=== PATIENT | female | born 2000 | race American Indian/Alaskan Native ===

== ENCOUNTER 2020-03-22 23:51 | Emergency (ER) | payer SELFPAY ==
[2020-03-22 23:58] VITALS: BP 116/90
== END 2020-03-23 01:00 | disposition left against medical advice (07) ==
LOC: ED 23:51
DX: Z00.8 Encounter for other general examination (principal); Z53.21 Procedure and treatment not carried out due to patient leaving prior to being seen by health care provider

== ENCOUNTER 2020-09-29 16:38 | Outpatient (CLI) | payer MEDICAID ==
[2020-09-29 19:24] VITALS: BP 110/78
[2020-09-29 19:36] LABS: Bacteria,Urine 1+ /HPF (Negative); Bilirubin,Urine NEG (Negative); Blood,Urine LG (Negative); Color,Urine Yellow (Yellow); Mucus,Urine FEW /HPF; Urobilinogen,Urine < 2.0 mg/dL (<2.0)
[2020-09-29] MEDS ORDERED: LACTATED RINGERS 1,000 ML IV ONE (19:51)
--- NOTE | 2020-09-30 18:00 | Electrocardiograph Report ---
[facility] Test Date: 2020-09-29 Test Time: 17:41:01 Pat Name: AMNA BIANCHI Department: Room: Gender: F Director Business Development: : 2000 Requested By: KANWAL NEWTON Order Number: [id number] Reading MD: Alva Ramirez Measurements Intervals [place] Rate: 115 P: 63 [place]: 136 QRS: 63 QRSD: 78 T: 26 QT: 316 QTc: 438 Interpretive Statements Sinus tachycardia Probable left atrial enlargement No previous ECG available for comparison Electronically Signed On 09-30-2020 18:00:42 EDT by Alva Ramirez
== END 2020-09-29 19:58 | disposition home or self-care (01) ==
LOC: EDSTATUS 17:55 → TRG 17:59 → APU 18:04 → TRG 19:58
PROVIDERS: ATTEND Obstetrics & Gynecology
DX: R00.0 Tachycardia, unspecified (principal); R55 Syncope and collapse
CPT/HCPCS: 81001; 87086; 93005

== ENCOUNTER 2020-11-07 19:56 | Outpatient (CLI) | payer MEDICAID ==
[2020-11-07 20:47] VITALS: BP 212/71
[2020-11-07 21:05] LABS: Bilirubin,Urine NEG (Negative); Blood,Urine LG (Negative); Calcium Oxalate Crystals,Urine 1+; Color,Urine Amber (Yellow); Mucus,Urine 3+ /HPF
[2020-11-07] MEDS ORDERED: LACTATED RINGERS 1,000 ML IV ONE (21:09)
[2020-11-07 21:12] LABS: Amphetamine Screen,Urine Negative; Benzodiazepines Screen,Urine Negative; Cannabinoid Screen,Urine Negative; Cocaine Screen,Urine Negative; Methadone Screen,Urine Negative; Opiate Screen,Urine Negative
--- NOTE | 2020-11-07 23:25 | Ultrasound Report ---
ULTRASOUND OBSTETRIC LIMITED ULTRASOUND BIOPHYSICAL PROFILE INDICATION / CLINICAL INFORMATION: ROBIN, PRESENTATION, PLACENTA. COMPARISON: None available. FINDINGS: BREATHING MOVEMENT = 2 GROSS BODY MOVEMENT = 2 TONE = 2 QUALITATIVE AMNIOTIC FLUID VOLUME = 2 TOTAL BIOPHYSICAL SCORE = 8/8 AMNIOTIC FLUID INDEX (cm) = 12.2 PRESENTATION: Cephalic. HEART RATE (beats per minute): 148 ADDITIONAL FINDINGS: Placenta anterior grade 2 without previa IMPRESSION: 1. Biophysical Score = 8/8 Signer Name: Mario Kennedy MD Signed: 11/07/2020 11:20 PM Workstation Name: [id number]
== END 2020-11-07 23:16 | disposition home or self-care (01) ==
LOC: TRG 19:56 → APU 20:08 → TRG 23:16
PROVIDERS: ATTEND Obstetrics & Gynecology
DX: O36.8130 Decreased fetal movements, third trimester, not applicable or unspecified (principal); O26.893 Other specified pregnancy related conditions, third trimester; R10.9 Unspecified abdominal pain; O99.513 Diseases of the respiratory system complicating pregnancy, third trimester; J45.909 Unspecified asthma, uncomplicated; O99.343 Other mental disorders complicating pregnancy, third trimester; F41.9 Anxiety disorder, unspecified; Z87.891 Personal history of nicotine dependence; Z3A.37 37 weeks gestation of pregnancy
CPT/HCPCS: 59025; 76815; 76819; 80307; 81001; 87086; 96361; 96365; J0690; J7120; 96360

== ENCOUNTER 2020-11-12 09:04 | Inpatient (IN) | payer MEDICAID ==
[2020-11-12] MEDS ORDERED: LOPERAMIDE 2 MG CAP PO PRN (10:23)
[2020-11-12] MEDS ORDERED: miSOPROStol 200 MCG TAB PR PRN (10:23)
[2020-11-12] MEDS ORDERED: LIDOCAINE (2%) 20 MG/1 ML VIAL 20 ML MDV INFILTRATI NR (10:23)
[2020-11-12] MEDS ORDERED: TERBUTALINE 1 MG/1 ML INJ SUB-Q PRN (10:23)
[2020-11-12] MEDS ORDERED: OXYTOCIN 10 UNIT/1 ML INJ IM PRN (10:23)
[2020-11-12] MEDS ORDERED: CARBOPROST TROMETHAMINE 250 MCG/1 ML INJ IM PRN (10:23)
[2020-11-12] MEDS ORDERED: OXYTOCIN DRIP 30 UNITS/500 ML BAG IV SCH (11:00)
[2020-11-12] MEDS ORDERED: BUTORPHANOL 2 MG/1 ML INJ IV PRN ×4 (11:05→11:30)
[2020-11-12] MEDS ORDERED: fentaNYL 100 MCG/2 ML INJ IV PRN ×2 (11:05→11:30)
[2020-11-12 11:16] LABS: Hemoglobin 12.2 gm/dl (10.1-14.3); Mean Corpuscular HGB Conc 35 % (30-34); Mean Corpuscular Volume 84 fl (79-97); Platelet Count 227 K/mm3 (140-440); Red Blood Count 4.15 M/mm3 (3.65-5.03); Red Cell Distribution Width 14.4 % (13.2-15.2)
--- NOTE | 2020-11-12 11:22 | History and Physical Report ---
History of Present Illness Date of examination: 11/12/20 Date of admission: 11/12/20 Chief complaint: c/o uc since last night History of present illness: 19 y/o presents @ 38.2 wks with c/o uc since last night. She denies VB or LOF and admits to active FM. Pt admits to a hx of asthma, anxiety, and marijuana use. Last asthma attack was in 2019. PNC initiated @ 7 04/02 wks @ [facility]. States preg has been uncomplicated thus far. Family hx of DM type II. GBS is neg. Pt was found to be in active labor and was admitted to L&D for delivery. 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 Family/Genetic History: diabetes Social history: single, smoking, full code - Obstetrical History Expected Date of Delivery: 11/24/20 Actual Gestation: 38 Week(s) 2 Day(s) : 1 Para: 0 Hx # Term Pregnancies: 0 Number of Pregnancies: 0 Spontaneous Abortions: 0 Number of Living Children: 0 Medications and Allergies Allergies Allergy/AdvReac Type Severity Reaction Status Date / Time No Known Allergies Allergy Unverified 11/12/20 10:13 Active Meds: Active Medications Acetaminophen (Acetaminophen 325 Mg Tab) 650 mg PO Q4H PRN PRN Reason: Pain, Mild (1-3) Acetaminophen (Acetaminophen 325 Mg Tab) 650 mg PO Q4H PRN PRN Reason: Pain, Mild (1-3) Butorphanol Tartrate (Butorphanol 2 Mg/1 Ml Inj) 1 mg IV Q2H PRN PRN Reason: Pain, Moderate(4-6) LABOR PAIN Butorphanol Tartrate (Butorphanol 2 Mg/1 Ml Inj) 2 mg IV Q2H PRN PRN Reason: Pain , Severe (7-10) Butorphanol Tartrate (Butorphanol 2 Mg/1 Ml Inj) 1 mg IV Q2H PRN PRN Reason: Pain, Moderate(4-6) LABOR PAIN Butorphanol Tartrate (Butorphanol 2 Mg/1 Ml Inj) 2 mg IV Q2H PRN PRN Reason: Pain , Severe (7-10) Carboprost Tromethamine (Carboprost Tromethamine 250 Mcg/1 Ml Inj) 250 mcg IM ONCE PRN PRN Reason: Uterine Bleeding Ephedrine Sulfate (Ephedrine Sulfate 50 Mg/1 Ml Inj) 10 mg IV Q2M PRN PRN Reason: Hypotension Fentanyl (Fentanyl 100 Mcg/2 Ml Inj) 100 mcg IV Q2H PRN PRN Reason: Pain,Severe (7-10) LABOR PAIN Fentanyl (Fentanyl 100 Mcg/2 Ml Inj) 100 mcg IV Q2H PRN PRN Reason: Pain,Severe (7-10) LABOR PAIN Lactated Ringer's (Lactated Ringers) 1,000 mls @ 125 mls/hr IV DIRECT JENNIFER Oxytocin/Sodium Chloride (Pitocin/Ns 30 Unit/500ml) 30 units in 500 mls @ 40 mls/hr IV TITR JENNIFER; Protocol Lidocaine (Lidocaine (2%) 20 Mg/1 Ml Vial 20 Ml Mdv) 20 ml INFILTRATI ONCE ONE Stop: 11/12/20 10:24 Loperamide HCl (Loperamide 2 Mg Cap) 2 mg PO ONCE PRN PRN Reason: give with Hemabate Methylergonovine Maleate (Methylergonovine Maleate 0.2 Mg/Ml Vial) 0.2 mg IM ONCE PRN PRN Reason: Uterine Bleeding Mineral Oil (Mineral Oil 30 Ml Oral Liqd) 30 ml PO QHS PRN PRN Reason: Constipation Misoprostol (Misoprostol 200 Mcg Tab) 800 mcg MT ONCE PRN PRN Reason: Uterine Bleeding Ondansetron HCl (Ondansetron 4 Mg/2 Ml Inj) 4 mg IV Q8H PRN PRN Reason: Nausea And Vomiting Oxytocin (Oxytocin 10 Unit/1 Ml Inj) 10 unit IM ONCE PRN PRN Reason: Uterine Bleeding Terbutaline Sulfate (Terbutaline 1 Mg/1 Ml Inj) 0.25 mg SUB-Q ONCE PRN PRN Reason: Hyperstimulation/Hypertonicity Review of Systems All systems: negative Eyes: deferred Ears, nose, mouth and throat: deferred Breasts: normal Genitourinary: normal appearance Rectal Exam: normal exam-external/orifice - Vital Signs Vital signs: Vital Signs Pulse BP 102 H 118/66 11/12/20 09:42 11/12/20 09:42 Temp Pulse Resp BP Pulse Ox 98.0 F 103 H 18 114/62 99 11/12/20 10:10 11/12/20 11:02 11/12/20 10:10 11/12/20 11:02 11/12/20 10:10 - Physical Exam Breasts: Positive: normal Abdomen: Positive: normal appearance, soft, normal bowel sounds Genitourinary (Female): Positive: normal external genitalia, normal perenium Vulva: both: normal Vagina: Positive: normal moisture Uterus: Positive: enlarged, normal contour, other (gravid) Adnexa: both: normal Anus/Rectum: Positive: normal perianal skin Extremities: Positive: normal - Obstetrical FHR: auscultation normal, category 1 Uterine Contraction Monitor Mode: External Cervical Dilatation: 5 Cervical Effacement Percentage: 80 station: -2 Uterine Contraction Pattern: Regular Uterine Tone Measurement Phase: Resting Uterine Contraction Intensity: Moderate Results Result Diagrams: 11/12/20 10:43 All other labs normal. Assessment and Plan A: IUP@ 38.2wks Asthma (Last attack 2019) Hx of Anxiety Marijuana use GBS neg P: Admit to L&D Continuous monitoring Pain med/Epidural prn UDS and SS consult if pos Anticipate - Patient Problems (1) Supervision of normal IUP (intrauterine ) in primigravida Current Visit: Yes Status: Acute
[2020-11-12] MEDS ORDERED: ONDANSETRON 4 MG/2 ML INJ IV PRN (11:30)
[2020-11-12] MEDS ORDERED: LACTATED RINGERS 1,000 ML IV SCH (11:30)
[2020-11-12] MEDS ORDERED: ACETAMINOPHEN 325 MG TAB PO PRN ×2 (11:30)
[2020-11-12] MEDS ORDERED: ePHEDrine SULFATE 50 MG/1 ML INJ IV PRN ×2 (11:30→13:30)
[2020-11-12] MEDS ORDERED: METHYLERGONOVINE MALEATE 0.2 MG/ML VIAL IM PRN (11:30)
[2020-11-12 12:16] LABS: Amphetamine Screen,Urine Negative; Benzodiazepines Screen,Urine Negative; Cannabinoid Screen,Urine Negative; Cocaine Screen,Urine Negative; Methadone Screen,Urine Negative; Opiate Screen,Urine Negative
--- NOTE | 2020-11-12 13:17 | Anesthesia Consultation ---
Anesthesia Consult and Med Hx Date of service: 11/12/20 - Airway Anesthetic Teeth Evaluation: Good ROM Head & Neck: Adequate Mental/Hyoid Distance: Adequate Mallampati Class: Class II Intubation Access Assessment: Probably Good - Pulmonary Exam CTA: Yes - Cardiac Exam Cardiac Exam: RRR - Pre-Operative Health Status ASA Pre-Surgery Classification: ASA2 Proposed Anesthetic Plan: Epidural - Pulmonary Hx Smoking: No Hx Asthma: Yes (last attack 2019) Hx Respiratory Symptoms: No SOB: No COPD: No Home Oxygen Therapy: No Hx Pneumonia: No Hx Sleep Apnea: No - Cardiovascular System Hx Hypertension: No Hx Coronary Artery Disease: No Hx Heart Attack/AMI: No Hx Angina: No Hx Percutaneous Transluminal Coronary Angioplasty (PTCA): No Hx Cardia Arrhythmia: No Hx Pacemaker: No Hx Internal Defibrillator: No Hx Valvular Heart Disease: No Hx Heart Murmur: No Hx Peripheral Vascular Disease: No - Central Nervous System Hx Neuromuscular Disorder: No Hx Seizures: No CVA: No Hx Back Pain: No Hx Psychiatric Problems: Yes (anxiety) - Gastrointestinal Hx Ulcer: No Hx Gastroesophageal Reflux Disease: Yes - Endocrine Hx Renal Disease: No Hx End Stage Renal Disease: No Hx Cirrhosis: No Hx Liver Disease: No Hx Insulin Dependent Diabetes: No Hx Non-Insulin Dependent Diabetes: No Hx Thyroid Disease: No Hx Hypothyroidism: No Hx Hyperthyroidism: No - Hematic Hx Anemia: No Hx Sickle Cell Disease: No - Other Systems Hx Alcohol Use: No (not since ) Hx Substance Use: No Hx Cancer: No Hx Obesity: Yes
[2020-11-12] MEDS ORDERED: NALOXONE 2 MG/2 ML INJ IV PRN (13:30)
--- NOTE | 2020-11-12 14:01 | Progress Note ---
Labor Epidural - Labor Epidural Start Time: 13:36 Stop Time: 13:46 Performed by:: JUANA BRADLEY Procedure: Patient is requesting a laboring epidural for laboring pain. Patient IDed, H&P reviewed, all questions and concerns were answered, and consent was signed. Timeout was performed at bedside. Patient in sitting position. Sterile prep and drape was performed. [3] ml of 1% lidocaine skin wheal at L[3]- L [4]. 18- gauge Yasmeen epidural needle was advanced to loss of resistance with saline technique 7cm. Negative CSF negative blood. Epidural catheter advanced to [11] centimeters. [NEGATIVE] Aspiration [NEGATIVE] test dose. Sterile dressing applied. Patient tolerated procedure.
[2020-11-12] MEDS: fentaNYL-BUPIV 2 MCG/ML-0.125% 200 MCG/100 ML BAG EPIDURAL SCH ×2 (14:12→22:02)
[2020-11-12] MEDS ORDERED: LIDOCAINE (2%) 20 MG/1 ML VIAL 20 ML MDV INFILTRATI ONE (20:07)
[2020-11-12] MEDS ORDERED: MINERAL OIL 30 ML ORAL LIQD PO PRN (22:00)
[2020-11-13] MEDS ORDERED: WITCH HAZEL/ GLYCERIN PAD TP PRN (00:16)
[2020-11-13] MEDS ORDERED: PROMETHAZINE 25 MG RECT SUPP PR PRN (00:16)
[2020-11-13] MEDS ORDERED: PROMETHAZINE 25 MG TAB PO PRN (00:16)
[2020-11-13] MEDS ORDERED: LANOLIN/ZINC/DIMETHICONE (LANSINOH) 7 GM TP PRN (00:16)
[2020-11-13] MEDS ORDERED: diphenhydrAMINE 25 MG CAP PO PRN (00:16)
[2020-11-13] MEDS ORDERED: ONDANSETRON 4 MG/2 ML INJ IV PRN (00:16)
[2020-11-13] MEDS ORDERED: MAGNESIUM HYDROXIDE (MOM) ORAL LIQD UDC PO PRN (00:16)
--- NOTE | 2020-11-13 00:43 | Procedure Note ---
OB Delivery Note - Delivery Date of Delivery: 11/12/20 Surgeon: BEATRICE RAMIREZ Estimated blood loss: other (325cc) - Vaginal Delivery presentation: vertex Delivery position: OA Delivery induction: none Delivery augmentation: rupture of membranes, pitocin Delivery monitor: external FHT, external uterine Route of delivery: Delivery placenta: spontaneous Delivery cord: nuchal cord, 3 umbilical vessels Episiotomy: none Delivery laceration: none Anesthesia: epidural Delivery comments: of a viable live male in OA position. Spontaneous delivery of head. Loose nuchal cord was reduced over infant's head and the rest of the body was delivered with ease. was immediately placed on mom's chest for skin to skin bonding. Delayed cord clamping while NICU nurse dried and stimulated baby. Cord was clamped x2 and FOB was guided in cutting the cord. was taken to the warmer by NICU nurse for an initial asses 8/9. Spontaneous delivery of an intact placenta with 3CV. FF@ U2 with fundal massage and IV Pitocin. An exploration of tears revealed none. EBL 325cc FW 3260 Gms. Mom and baby was left in stable condition with nurses. - A at 1 minute: 8 at 5 minutes: 9 Gender: Male (FW 3260 Gms)
[2020-11-13] MEDS: oxyCODONE /ACETAMINOPHEN 5-325MG TAB PO PRN ×3 (04:30→20:26)
[2020-11-13] MEDS: IBUPROFEN 600 MG TAB PO SCH ×4 (05:13→23:55)
--- NOTE | 2020-11-13 11:27 | Post Anesthesia Evaluation ---
- Post Anesthesia Evaluation Patient Participated: Yes Airway Patent: Yes Stable Respiratory Function: Yes Nausea/Vomiting: No Temp > 96.8F: Yes Pain Manageable: Yes Adequeate Hydration: Yes Anesthesia Complications: No Block Receding Appropriately: Yes Patient on Ventilator: No
[2020-11-13] MEDS ORDERED: BENZOCAINE/MENTHOL 20/0.5% TOP SPRAY 56 GM TP PRN (12:09)
--- NOTE | 2020-11-13 12:14 | Progress Note ---
Assessment and Plan A: day 1 S/P . P: Urinalysis and C&S. Dermoplast spray to perineum as needed. Subjective - Subjective Date of service: 11/13/20 Principal diagnosis: day 1 S/P Interval history: Patient reports perineal discomfort. Denies lesions. Reports small amount of lochia. Patient reports: appetite normal, voiding normally, pain well controlled, flatus, ambulating normally, no dizzy ambulation, no nauseated : doing well Objective - Vital Signs Latest vital signs: Vital Signs Temp Pulse Resp BP BP Pulse Ox Pulse Ox 11/13/20 08:00 100 11/13/20 07:57 98.1 F 81 16 111/60 98 11/13/20 04:11 98.0 F 97 H 18 119/58 96 11/13/20 02:55 98 11/13/20 02:50 99.0 F 102 H 20 109/58 100 11/13/20 01:29 122 H 100 11/13/20 01:28 112 H 102/62 11/13/20 01:24 122 H 100 11/13/20 01:19 111 H 100 11/13/20 01:14 113 H 100 11/13/20 01:13 117 H 119/68 11/13/20 01:09 112 H 100 11/13/20 01:04 113 H 100 11/13/20 00:59 117 H 100 11/13/20 00:58 114 H 115/66 11/13/20 00:54 126 H 100 11/13/20 00:49 129 H 100 11/13/20 00:44 122 H 99 11/13/20 00:43 121 H 118/68 11/13/20 00:39 120 H 99 11/13/20 00:38 116 H 100/63 11/13/20 00:34 127 H 100 11/13/20 00:29 129 H 100 11/13/20 00:28 142 H 164/119 11/13/20 00:24 134 H 100 11/13/20 00:19 128 H 100 11/13/20 00:14 94 11/13/20 00:08 69 100 11/12/20 23:58 121 H 136/58 11/12/20 23:54 74 100 11/12/20 23:49 63 100 11/12/20 23:40 158 H 100 11/12/20 23:34 66 91 11/12/20 23:29 106 H 135/78 100 11/12/20 23:28 80 81 L 11/12/20 23:24 98 H 100 11/12/20 23:19 123 H 100 11/12/20 23:14 112 H 88 11/12/20 23:12 113 H 85 11/12/20 23:09 112 H 100 11/12/20 23:05 116 H 0 L 11/12/20 23:04 112 H 100 11/12/20 23:00 97 H 103/49 11/12/20 22:59 98 H 100 11/12/20 22:54 101 H 100 11/12/20 22:49 108 H 98 11/12/20 22:44 107 H 99 11/12/20 22:39 104 H 100 11/12/20 22:34 94 H 100 11/12/20 22:29 94 H 100 11/12/20 22:24 104 H 93 11/12/20 22:19 97 H 100 11/12/20 22:13 131 H 100 11/12/20 22:08 99 11/12/20 22:05 103 H 87 11/12/20 22:03 102 H 100 11/12/20 21:59 108 H 101/65 11/12/20 21:58 98 H 100 11/12/20 21:57 108 H 93 11/12/20 21:53 104 H 98 11/12/20 21:48 87 99 11/12/20 21:43 93 H 100 11/12/20 21:38 108 H 100 11/12/20 21:33 97 H 100 11/12/20 21:28 93 H 97/64 94 11/12/20 21:23 105 H 100 11/12/20 21:18 91 H 100 11/12/20 21:13 88 100 11/12/20 21:08 93 H 100 11/12/20 21:03 93 H 100 11/12/20 20:59 93 H 108/56 11/12/20 20:58 88 100 11/12/20 20:53 93 H 100 11/12/20 20:48 92 H 100 11/12/20 20:43 93 H 100 11/12/20 20:38 96 H 99 11/12/20 20:33 101 H 100 11/12/20 20:28 96 H 105/67 100 11/12/20 20:23 94 H 100 11/12/20 20:20 92 H 89 11/12/20 20:18 94 H 100 11/12/20 20:15 98.7 F 11/12/20 20:13 106 H 100 11/12/20 20:08 100 H 100 11/12/20 20:03 107 H 100 11/12/20 19:58 91 H 96/63 100 11/12/20 19:53 101 H 100 11/12/20 19:48 104 H 100 11/12/20 19:43 97 H 100 11/12/20 19:38 99 H 100 11/12/20 19:33 99 H 100 11/12/20 19:28 95 H 98/66 100 11/12/20 19:23 92 H 100 11/12/20 19:18 92 H 100 11/12/20 19:13 108 H 100 11/12/20 19:08 96 H 100 11/12/20 19:03 100 H 100 11/12/20 18:59 92 H 109/63 11/12/20 18:58 87 100 11/12/20 18:53 98 H 100 11/12/20 18:48 105 H 100 11/12/20 18:43 105 H 100 11/12/20 18:38 98 H 100 11/12/20 18:33 91 H 100 11/12/20 18:30 98 H 93 11/12/20 18:28 90 104/58 100 11/12/20 18:23 87 100 11/12/20 18:19 63 78 L 11/12/20 18:18 89 100 11/12/20 18:13 90 100 11/12/20 18:08 91 H 99 19 18:03 93 H 98 11/12/20 17:58 93 H 98 11/12/20 17:53 98 H 100 11/12/20 17:48 100 H 100 11/12/20 17:43 103 H 100 11/12/20 17:38 88 100 11/12/20 17:33 86 100 21 17:28 88 99/59 100 11/12/20 17:23 83 100 11/12/20 17:18 93 H 100 11/12/20 17:13 88 100 11/12/20 17:08 85 100 11/12/20 17:03 91 H 100 11/12/20 16:58 83 99/58 100 11/12/20 16:53 94 H 100 11/12/20 16:50 82 98/59 11/12/20 16:48 81 100 11/12/20 16:43 93 H 100 11/12/20 16:38 85 100 11/12/20 16:33 89 100 11/12/20 16:29 94 H 96/56 11/12/20 16:28 87 100 11/12/20 16:23 94 H 100 11/12/20 16:18 97 H 100 11/12/20 16:13 90 99 11/12/20 16:08 86 98 11/12/20 16:03 96 H 97 11/12/20 16:01 88 91/59 11/12/20 15:59 99 H 87/55 11/12/20 15:58 96 H 98 11/12/20 15:53 100 H 98 11/12/20 15:48 93 H 98 11/12/20 15:43 90 98 11/12/20 15:38 105 H 98 11/12/20 15:33 112 H 108/73 11/12/20 15:31 102 H 97 11/12/20 15:29 97 H 81/45 11/12/20 15:26 103 H 98 11/12/20 15:21 109 H 98 11/12/20 15:16 105 H 98 11/12/20 15:11 115 H 99 11/12/20 15:06 96 H 98 11/12/20 15:01 94 H 98 11/12/20 14:59 92 H 81/53 11/12/20 14:56 117 H 98 11/12/20 14:51 122 H 98 11/12/20 14:46 113 H 98 11/12/20 14:41 105 H 98 11/12/20 14:36 111 H 97 11/12/20 14:31 102 H 97 11/12/20 14:27 109 H 103/62 11/12/20 14:26 105 H 96 11/12/20 14:24 101 H 106/67 11/12/20 14:21 100 H 99 11/12/20 14:17 100 H 108/64 11/12/20 14:16 105 H 98 11/12/20 14:12 104 H 108/59 11/12/20 14:11 108 H 98 11/12/20 14:10 97 H 111/58 11/12/20 14:08 100 H 108/63 11/12/20 14:06 96 H 109/68 99 11/12/20 14:04 93 H 104/71 11/12/20 14:02 97 H 112/62 11/12/20 14:01 100 H 99 11/12/20 14:00 102 H 117/59 11/12/20 13:58 100 H 107/63 11/12/20 13:56 101 H 103/55 98 11/12/20 13:54 102 H 105/58 11/12/20 13:52 110 H 111/68 11/12/20 13:51 105 H 99 11/12/20 13:48 102 H 112/54 11/12/20 13:46 104 H 114/62 100 11/12/20 13:44 101 H 113/61 11/12/20 13:41 98 H 99 11/12/20 13:36 108 H 99 11/12/20 13:31 130 H 99 11/12/20 13:26 111 H 100 11/12/20 13:16 106 H 99 11/12/20 13:11 107 H 99 11/12/20 13:06 103 H 99 11/12/20 13:01 108 H 97 11/12/20 12:56 129 H 98 11/12/20 12:51 103 H 98 11/12/20 12:46 107 H 98 11/12/20 12:41 107 H 97 11/12/20 12:36 102 H 98 11/12/20 12:35 101 H 104/61 11/12/20 12:22 98.6 F 112 H 18 104/61 98 Intake and Output 11/12/20 11/13/20 11/13/20 23:59 07:59 15:59 Intake Total 19.733 200 240 Output Total 250 1400 Balance -230.267 -1200 240 Intake: IV 19.733 PITOCin/NS 30 UNIT/500ML 19.733 30 units In 500 ml @ 40 mls/hr IV TITR JENNIFER Rx#: [id number] Oral 200 240 Output: Urine 250 1400 Indwelling Catheter 250 Void 1400 Other: Total, Intake Amount 200 240 Total, Output Amount 250 600 # Voids Void 1 1 - Exam Narrative Exam: No perineal swelling or ecchymosis noted. Cardiovascular: Present: Regular rate Lungs: Present: Clear to auscultation Abdomen: Present: normal appearance, soft. Absent: distention, tenderness, guarding, rigidity Uterus: Present: normal, firm, fundal height below umbilicus. Absent: bogg iness, tenderness Extremities: Present: normal, edema (pedal edema bilaterally). Absent: tenderness
[2020-11-13 13:38] LABS: Hematocrit 30.6 % (30.3-42.9); Hemoglobin 10.3 gm/dl (10.1-14.3)
[2020-11-13] MEDS: FERROUS SULFATE 325 MG TAB PO SCH (21:41)
[2020-11-14 02:11] LABS: Bilirubin,Urine NEG (Negative); Blood,Urine LG (Negative); Color,Urine Yellow (Yellow); Mucus,Urine FEW /HPF
[2020-11-14 02:16] LABS: RBC,Urine > 182.0 /HPF (0.0-6.0)
[2020-11-14] MEDS: IBUPROFEN 600 MG TAB PO SCH ×2 (05:44→20:45)
--- NOTE | 2020-11-14 06:50 | Progress Note ---
Assessment and Plan A: day 2 S/P . Anemia (on iron supplementation). UTI/possible pyelonephritis. Urine C&S pending. P: Continue iron supplementation. Start Rocephin IV. Spoke with re: this patient. Subjective - Subjective Date of service: 11/14/20 Principal diagnosis: day 2 S/P Interval history: Patient reports left flank pain. She denies fever or chills or nausea or vomiting. Patient reports: appetite normal, voiding normally, pain well controlled, flatus, ambulating normally, no dizzy ambulation, no nauseated [place]: doing well Objective - Vital Signs Latest vital signs: Vital Signs Temp Pulse Resp BP Pulse Ox Pulse Ox 11/14/20 00:11 98.0 F 88 20 121/62 100 11/13/20 20:00 0 L 11/13/20 16:50 98.4 F 97 H 18 117/47 99 11/13/20 16:49 98.4 F 94 H 18 94/40 98 11/13/20 12:52 98.1 F 102 H 20 108/57 100 11/13/20 08:00 100 11/13/20 07:57 98.1 F 81 16 111/60 98 Intake and Output 11/13/20 11/13/20 11/14/20 15:59 23:59 07:59 Intake Total 240 240 600 Balance 240 240 600 Intake: Oral 240 240 600 Other: Total, Intake Amount 240 240 240 # Voids Void 1 1 1 - Exam Narrative Exam: Left CVAT present. Cardiovascular: Present: Regular rate Lungs: Present: Clear to auscultation Abdomen: Present: normal appearance, soft, normal bowel sounds. Absent: distention, tenderness, guarding, rigidity Uterus: Present: normal, firm, fundal height below umbilicus. Absent: bogginess, tenderness Extremities: Absent: tenderness - Labs Labs: Abnormal lab results 11/14/20 Range/Units 01:40 Urine WBC (Auto) 38.0 H (0.0-6.0) /HPF
[2020-11-14] MEDS: FERROUS SULFATE 325 MG TAB PO SCH ×2 (09:12→21:51)
[2020-11-14] MEDS: cefTRIAXone/NS 1 GM/50 ML 1 GM/50 ML BAG IV SCH (12:54)
[2020-11-14] MEDS: oxyCODONE /ACETAMINOPHEN 5-325MG TAB PO PRN (16:01)
[2020-11-15] MEDS: oxyCODONE /ACETAMINOPHEN 5-325MG TAB PO PRN (04:15)
[2020-11-15] MEDS: IBUPROFEN 600 MG TAB PO SCH ×3 (05:20→12:22)
--- NOTE | 2020-11-15 11:51 | Progress Note ---
Assessment and Plan A: day 3 S/P . UTI/pyelonephritis. Anemia. P: Continue IV Rocephin (awaiting urine C&S results). Continue oral iron supplementation. Anticipate discharge later today or tomorrow (after urine culture results are back). Subjective - Subjective Date of service: 11/15/20 Principal diagnosis: day 3 S/P ; UTI/pyelo Interval history: Urine culture still pending. Patient is receiving Rocephin IV for UTI/pyelo. Patient states flank pain has resolved. Patient denies fever or chills or malaise. Patient reports: appetite normal, voiding normally, pain well controlled, fl atus, ambulating normally, no dizzy ambulation, no nauseated : doing well Objective - Vital Signs Latest vital signs: Vital Signs Temp Pulse Resp BP Pulse Ox Pulse Ox 11/15/20 08:25 98 11/15/20 07:40 98.4 F 87 16 122/75 98 11/15/20 06:33 98 11/15/20 04:15 98 11/15/20 01:40 98 11/15/20 00:29 99 11/14/20 23:50 98.5 F 85 20 121/76 100 11/14/20 21:40 98 11/14/20 20:30 98 11/14/20 16:27 98.4 F 85 16 128/75 100 11/14/20 16:01 20 Intake and Output 11/14/20 11/15/20 11/15/20 23:59 07:59 15:59 Intake Total 720 240 240 Balance 720 240 240 Intake: Oral 720 240 240 Other: Total, Intake Amount 240 120 240 # Voids Void 1 1 1 - Exam Narrative Exam: Negative CVAT. Cardiovascular: Present: Regular rate Lungs: Present: Clear to auscultation Abdomen: Present: normal appearance, soft, normal bowel sounds. Absent: di stention, tenderness, guarding, rigidity Uterus: Present: normal, firm, fundal height below umbilicus. Absent: bogginess, tenderness Extremities: Absent: tenderness
[2020-11-15] MEDS: cefTRIAXone/NS 1 GM/50 ML 1 GM/50 ML BAG IV SCH (12:23)
--- NOTE | 2020-11-15 15:28 | Discharge Summary ---
Providers - Providers Date of Admission: 11/12/20 10:23 Date of discharge: 11/15/20 Attending physician: JASMINA WERNER MD Primary care physician: HINA FRANCO MD Hospitalization Reason for admission: active labor Delivery: Episiotomy: none Laceration: none Other procedures: none complications: UTI Discharge diagnosis: IUP at term delivered [place] baby: male Pertinent studies: Labs Hospital course: UTI/pyelo treated with IV Rocephin (patient discharged home on oral Macrobid--called to [facility] pharmacy on [address]). Condition at discharge: Good Disposition: 01 HOME / SELF CARE / HOMELESS - Discharge Diagnoses (1) Term delivered Status: Acute (2) Anemia Status: Acute (3) UTI (urinary tract infection) Status: Acute Plan - Provider Discharge Summary Activity: routine, no sex for 6 weeks, no heavy lifting 4 weeks, no strenuous exercise Diet: routine Instructions: routine Additional instructions: Continue taking your vitamin and iron supplement at home. 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 Follow up at [facility] office in 2 days. Call your doctor immediately for: * Fever > 100.5 * Heavy vaginal bleeding ( >1 pad per hour) * Severe persistent headache * Shortness of breath * Reddened, hot, painful area to leg or breast - Follow up plan Follow up: HINA FRANCO MD [Primary Care Provider] - 48 Hours
[2020-11-15 16:45] VITALS: BP 118/86
== END 2020-11-15 15:59 | disposition home or self-care (01) | DRG 775 ==
LOC: TRG 09:04 → APU 09:05 → LD 10:23 → TRG 10:23 → OB 11-13 03:15
PROC: 10E0XZZ Delivery of Products of Conception, External Approach (ICD-10-PCS; principal; 2020-11-13)
PROC: 3E0R3BZ Introduction of Anesthetic Agent into Spinal Canal, Percutaneous Approach (ICD-10-PCS; 2020-11-13)
PROC: 00HU33Z Insertion of Infusion Device into Spinal Canal, Percutaneous Approach (ICD-10-PCS; 2020-11-13)
DX: O69.81X0 Labor and delivery complicated by cord around neck, without compression, not applicable or unspecified (principal); Z37.0 Single live birth; O99.52 Diseases of the respiratory system complicating childbirth; Z3A.38 38 weeks gestation of pregnancy; O99.344 Other mental disorders complicating childbirth; J45.909 Unspecified asthma, uncomplicated; F41.9 Anxiety disorder, unspecified; O99.324 Drug use complicating childbirth; F12.90 Cannabis use, unspecified, uncomplicated; B96.89 Other specified bacterial agents as the cause of diseases classified elsewhere; O99.62 Diseases of the digestive system complicating childbirth; O99.214 Obesity complicating childbirth; K21.9 Gastro-esophageal reflux disease without esophagitis; O90.81 Anemia of the puerperium; D64.9 Anemia, unspecified; O86.21 Infection of kidney following delivery
CPT/HCPCS: 36415; 59025; 80307; 81001; 85014; 85018; 85027; 86592; 86850; 86900; 86901; 87076; 87086; 87186; 96360; 96365; 96367; 96375; 96376; 99211; G0378; G0463; J0696; J2405; J2590; J7120; U0003

== ENCOUNTER 2021-02-16 20:45 | Emergency (ER) | payer MEDICAID ==
--- NOTE | 2021-02-16 21:04 | Emergency Department Report ---
ED General Adult HPI - General Chief complaint: Vaginal Bleeding Stated complaint: POSSIBLE MISCARRIAGE Time Seen by Provider: 02/16/21 20:57 Source: patient Mode of arrival: Ambulatory Limitations: No Limitations - History of Present Illness Initial comments: Patient is 20 years old female 2 para 1. Patient delivered in October. Patient stated that she did have a. In November and she did not have any. In December or January. Patient presented today complaining of vaginal bleeding started this morning associated with abdominal cramping. Patient stated that she think that she has miscarriage. Patient denied any other symptoms. - Related Data Allergies Allergy/AdvReac Type Severity Reaction Status Date / Time No Known Allergies Allergy Verified 02/16/21 22:18 ED Review of Systems ROS: Stated complaint: POSSIBLE MISCARRIAGE Other details as noted in HPI Comment: All other systems reviewed and negative Constitutional: denies: chills, fever Respiratory: denies: cough, shortness of breath, SOB with exertion, SOB at rest Cardiovascular: denies: chest pain, palpitations Gastrointestinal: abdominal pain. denies: nausea, vomiting, diarrhea, constipation, hematemesis Genitourinary: abnormal menses Neurological: denies: headache, weakness, numbness, paresthesias, confusion ED Past Medical Hx - Past Medical History Hx Hypertension: No Hx Heart Attack/AMI: No Hx Congestive Heart Failure: No Hx Diabetes: No Hx Deep Vein Thrombosis: No Hx Liver Disease: No Hx Renal Disease: No Hx Sickle Cell Disease: No Hx Seizures: No Hx Asthma: Yes (last attack 2019) Hx COPD: No Hx HIV: No - Surgical History Hx Pacemaker: No Hx Internal Defibrillator: No - Social History Smoking Status: Former Smoker ED Physical Exam - General Limitations: No Limitations General appearance: alert, in no apparent distress - Head Head exam: Present: atraumatic, normocephalic, normal inspection - Eye Eye exam: Present: normal appearance, PERRL - ENT ENT exam: Present: normal exam, normal orophraynx, mucous membranes moist - Neck Neck exam: Present: normal inspection, full ROM. Absent: tenderness, meningismus - Respiratory Respiratory exam: Present: normal lung sounds bilaterally - Cardiovascular Cardiovascular Exam: Present: regular rate, normal rhythm, normal heart sounds - GI/Abdominal GI/Abdominal exam: Present: soft, normal bowel sounds. Absent: distended, tenderness, guarding, rebound, rigid, organomegaly, mass, bruit, pulsatile mass, hernia - Extremities Exam Extremities exam: Present: normal inspection, full ROM, normal capillary refill. Absent: tenderness, pedal edema, joint swelling, calf tenderness - Back Exam Back exam: Present: normal inspection, full ROM. Absent: CVA tenderness (R), CVA tenderness (L) - Neurological Exam Neurological exam: Present: alert, oriented X3, CN II-XII intact, normal gait, reflexes normal. Absent: motor sensory deficit - Psychiatric Psychiatric exam: Present: normal mood - Skin Skin exam: Present: warm, intact, normal color ED Course Vital Signs 02/16/21 02/16/21 22:43 22:44 Temperature 98.6 F Pulse Rate 78 Respiratory 18 18 Rate Blood Pressure 133/78 [Left] O2 Sat by Pulse 98 98 Oximetry ED Medical Decision Making - Lab Data Result diagrams: 02/16/21 21:23 02/16/21 21:23 - Radiology Data Radiology results: report reviewed - Medical Decision Making Patient is 20 years old female 2 para 1. Patient delivered in October. Patient stated that she did have a. In November and she did not have any. In December or January. Patient presented today complaining of vaginal bleeding started this morning associated with abdominal cramping. Patient stated that she think that she has miscarriage. Patient denied any other symptoms. Labs reviewed and is unremarkable. Ultrasound of the pelvis showed no intrauterine 9 gestation. This may be an early or a complete miscarriage. Patient advised to follow-up with her OB doctor to repeat beta-hCG and ultrasound in the next 2 to 3 days. Patient also advised to return to the ER if she is develop any new symptoms or if her symptoms get worse. Critical care attestation.: If time is entered above; I have spent that time in minutes in the direct care of this critically ill patient, excluding procedure time. ED Disposition Clinical Impression: Vaginal bleeding during , antepartum Disposition: HOME / SELF CARE / HOMELESS Is pt being admited?: No Condition: Stable Instructions: Vaginal Bleeding During , First Trimester, [id number] Referrals: PRIMARY CARE, [Primary Care Provider] - 3-5 Days
[2021-02-16 21:40] LABS: Basophils # (Auto) 0.1 K/mm3 (0.0-0.1); Basophils % (Auto) 0.9 % (0.0-1.8); Eosinophils # (Auto) 0.1 K/mm3 (0.0-0.4); Eosinophils % (Auto) 0.7 % (0.0-4.3); Hematocrit 38.8 % (30.3-42.9); Hemoglobin 12.8 gm/dl (10.1-14.3); Lymphocytes # (Auto) 2.2 K/mm3 (1.2-5.4); Lymphocytes % (Auto) 22.9 % (13.4-35.0); Mean Corpuscular HGB Conc 33 % (30-34); Mean Corpuscular Volume 84 fl (79-97); Monocytes # (Auto) 0.6 K/mm3 (0.0-0.8); Monocytes % (Auto) 5.9 % (0.0-7.3); Platelet Count 312 K/mm3 (140-440); Red Blood Count 4.63 M/mm3 (3.65-5.03); Red Cell Distribution Width 14.5 % (13.2-15.2)
[2021-02-16 21:45] LABS: Calcium Oxalate Crystals,Urine 3+
[2021-02-16 21:46] LABS: Color,Urine Red (Yellow); RBC,Urine > 182.0 /HPF (0.0-6.0)
[2021-02-16 21:47] LABS: Bilirubin,Urine Color Interference (Negative); Blood,Urine TNR (Negative); PH,Urine TNR (5.0-7.0); Protein,Urine TNR mg/dL (Negative); Urobilinogen,Urine TNR mg/dL (<2.0)
[2021-02-16 21:48] LABS: Ictotest,Urine TNR (Negative)
[2021-02-16 21:54] LABS: Blood Urea Nitrogen 7 mg/dL (7-17); Calcium 9.3 mg/dL (8.4-10.2); Hemolysis Index 5
[2021-02-16 22:14] LABS: BUN/Creatinine Ratio 14
--- NOTE | 2021-02-17 00:06 | Ultrasound Report ---
ULTRASOUND OBSTETRIC REASON FOR EXAM: , vaginal bleeding. TECHNIQUE: Transabdominal and transvaginal ultrasound was performed to evaluate a first trimester pre gnancy. COMPARISON: None available. FINDINGS: Uterus measures 8.8 x 4.7 x 6.1 cm. Endometrial stripe measures 4 mm. No IUP is identified. There is an 8 mm hypoechoic myometrial structure, likely reflecting small fibroid or uterine cyst. Right ovary measures 3.7 x 1.8 x 2.1 cm, and the left ovary measures 3.6 x 2.0 x 2.5 cm. No suspiciou s cystic or solid mass. No significant free fluid. IMPRESSION: of unknown location. No IUP identified. Findings could reflect an early intrauterine pregna ncy, occult ectopic , or recent spontaneous . In a hemodynamically stable patient, r ecommend follow-up with pelvic ultrasound in 7-10 days. Signer Name: Adebayo Farfan MD Signed: 02/17/2021 12:02 AM Workstation Name: [id number]
[2021-02-17 00:27] VITALS: BP 125/66
== END 2021-02-17 00:26 | disposition home or self-care (01) ==
LOC: ED 20:45
DX: O46.91 Antepartum hemorrhage, unspecified, first trimester (principal); J45.909 Unspecified asthma, uncomplicated; Z3A.08 8 weeks gestation of pregnancy
CPT/HCPCS: 36415; 76801; 80048; 81001; 84702; 84703; 85025; 99284

== ENCOUNTER 2021-02-25 17:00 | Emergency (ER) | payer MEDICAID ==
[2021-02-25 17:07] VITALS: BP 130/78
--- NOTE | 2021-02-25 20:21 | Event Note ---
ED Screening Note Date of service: 02/25/21 Time: 20:19 ED Screening Note: Pt c/o continued vaginal bleeding and lower abdominal cramping pain in seen here for the same 02/16/21follows with [facility] hcg at last visit aleksey. 1440, no IUP on US here for repeat labs and US This initial assessment/diagnostic orders/clinical plan/treatment(s) is/are subject to change based on patients health status, clinical progression and re- assessment by fellow clinical providers in the ED. Further treatment and workup at subsequent clinical providers discretion. Patient/guardian urged not to elope from the ED as their condition may be serious if not clinically assessed and managed. Initial orders include: labs US
[2021-02-25 20:59] LABS: BUN/Creatinine Ratio 14; Blood Urea Nitrogen 10 mg/dL (7-17); Calcium 9.4 mg/dL (8.4-10.2); Hemolysis Index 12
[2021-02-25 21:12] LABS: Bacteria,Urine 1+ /HPF (Negative); Bilirubin,Urine NEG (Negative); Blood,Urine LG (Negative); Color,Urine Yellow (Yellow); Mucus,Urine 1+ /HPF; Protein,Urine <15 mg/dL mg/dL (Negative); Urobilinogen,Urine < 2.0 mg/dL (<2.0)
[2021-02-25 21:12] LABS: Basophils # (Auto) 0.1 K/mm3 (0.0-0.1); Eosinophils # (Auto) 0.1 K/mm3 (0.0-0.4); Eosinophils % (Auto) 1.6 % (0.0-4.3); Hematocrit 39.6 % (30.3-42.9); Hemoglobin 13.1 gm/dl (10.1-14.3); Lymphocytes # (Auto) 2.3 K/mm3 (1.2-5.4); Lymphocytes % (Auto) 27.8 % (13.4-35.0); Mean Corpuscular HGB Conc 33 % (30-34); Mean Corpuscular Volume 84 fl (79-97); Monocytes # (Auto) 0.5 K/mm3 (0.0-0.8); Monocytes % (Auto) 6.7 % (0.0-7.3); Platelet Count 373 K/mm3 (140-440); Red Blood Count 4.72 M/mm3 (3.65-5.03); Red Cell Distribution Width 14.1 % (13.2-15.2)
--- NOTE | 2021-02-25 21:43 | Emergency Department Report ---
ED General Adult HPI - General Chief complaint: OB/Uterine Contractions Stated complaint: POSSIBLE MISCARRIAGE Source: patient Mode of arrival: Ambulatory Limitations: No Limitations - History of Present Illness Initial comments: Patient is a A1 20-year-old -[place] who is approximately 5 to 6 weeks gestation and who had a miscarriage a week ago presented to the ED for evaluation to confirm the complete miscarriage. Patient states that she contacted her [employer] who advised to come to the ED for evaluation. Patient denies dizziness, syncope, vaginal bleeding, vaginal discharge, chest pain, shortness of breath, dysuria, urine frequency and urgency, abdominal pain, back pain, headache, nausea and vomiting or diarrhea. MD Complaint: Recheck of hcg quant, miscarriage 1 week ago -: Sudden, week(s) (1) Location: abdomen, genitals Radiation: non-radiation Severity scale (0 -10): 0 Quality: dull Consistency: constant Improves with: none Worsens with: none Associated Symptoms: denies other symptoms. denies: confusion, chest pain, cough, diaphoresis, headaches, loss of appetite, malaise, nausea/vomiting, rash, shortness of breath, syncope, weakness, other Treatments Prior to Arrival: none - Related Data Allergies Allergy/AdvReac Type Severity Reaction Status Date / Time No Known Allergies Allergy Verified 02/16/21 22:18 ED Review of Systems ROS: Stated complaint: POSSIBLE MISCARRIAGE Other details as noted in HPI Constitutional: denies: chills, fever Eyes: denies: eye pain, eye discharge, vision change ENT: denies: ear pain, throat pain Respiratory: denies: cough, shortness of breath, wheezing Cardiovascular: denies: chest pain, palpitations Endocrine: no symptoms reported Gastrointestinal: denies: abdominal pain, nausea, vomiting, diarrhea, hematemesis Genitourinary: denies: urgency, dysuria, discharge Musculoskeletal: denies: back pain, joint swelling, arthralgia Skin: denies: rash, lesions Neurological: denies: headache, weakness, paresthesias Psychiatric: denies: anxiety, depression Hematological/Lymphatic: denies: easy bleeding, easy bruising ED Past Medical Hx - Past Medical History Hx Hypertension: No Hx Heart Attack/AMI: No Hx Congestive Heart Failure: No Hx Diabetes: No Hx Deep Vein Thrombosis: No Hx Liver Disease: No Hx Renal Disease: No Hx Sickle Cell Disease: No Hx Seizures: No Hx Asthma: Yes (last attack 2019) Hx COPD: No Hx HIV: No - Surgical History Hx Pacemaker: No Hx Internal Defibrillator: No - Social History Smoking Status: Former Smoker ED Physical Exam - General Limitations: No Limitations General appearance: alert, in no apparent distress - Head Head exam: Present: atraumatic, normocephalic, normal inspection - Eye Eye exam: Present: normal appearance, PERRL, EOMI Pupils: Present: normal accommodation - ENT ENT exam: Present: normal exam, normal orophraynx, mucous membranes moist, TM's normal bilaterally, normal external ear exam - Neck Neck exam: Present: normal inspection, full ROM - Respiratory Respiratory exam: Present: normal lung sounds bilaterally. Absent: respiratory distress, wheezes, rales, rhonchi, chest wall tenderness, accessory muscle use, decreased breath sounds, prolonged expiratory - Cardiovascular Cardiovascular Exam: Present: regular rate, normal rhythm, normal heart sounds. Absent: systolic murmur, diastolic murmur, rubs, gallop - GI/Abdominal GI/Abdominal exam: Present: soft, normal bowel sounds. Absent: tenderness, guarding, rebound, hyperactive bowel sounds, hypoactive bowel sounds, organomegaly, bruit - Extremities Exam Extremities exam: Present: normal inspection, full ROM, normal capillary refill - Back Exam Back exam: Present: normal inspection, full ROM. Absent: tenderness, CVA tenderness (R), CVA tenderness (L), muscle spasm, paraspinal tenderness, vert ebral tenderness - Neurological Exam Neurological exam: Present: alert, oriented X3, CN II-XII intact, normal gait, reflexes normal - Psychiatric Psychiatric exam: Present: normal affect, normal mood - Skin Skin exam: Present: warm, dry, intact, normal color. Absent: rash ED Course Vital Signs 02/25/21 17:04 Temperature 98.6 F Pulse Rate 98 H Respiratory 16 Rate Blood Pressure 130/78 [Left] O2 Sat by Pulse 99 Oximetry ED Medical Decision Making - Lab Data Result diagrams: 02/25/21 20:23 02/25/21 20:23 - Medical Decision Making This is a A1 20-year-old -Cro[place]ian who is approximately 5 to 6 weeks gestation and who had a miscarriage a week ago presented to the ED for evaluation to confirm the complete miscarriage. Patient states that she contacted her [employer] who advised to come to the ED for evaluation. In the ED, patient is alert and oriented x3 and is not in any distress. Patient is hemodynamically stable. Lab test results were reviewed and are all nonactionable. The hCG quant is negative. Patient was discharged home and advised to follow-up with her [employer] physician as needed. No ultrasound was performed as the is negative. Patient was advised to return to the ED immediately if symptoms get worse. - Differential Diagnosis Complete miscarriage; UTI; dehydration; Critical care attestation.: If time is entered above; I have spent that time in minutes in the direct care of this critically ill patient, excluding procedure time. ED Disposition Clinical Impression: Complete miscarriage Disposition: 01 HOME / SELF CARE / HOMELESS Is pt being admited?: No Does the pt Need Aspirin: No Condition: Stable Instructions: Miscarriage, [id number] Additional Instructions: All lab test results were reviewed and are all nonactionable, and the hCG quant is negative. No ultrasound is indicated for negative hCG quant. Follow-up with your [employer] physician in 5 to 7 days for reevaluation or as needed. Return to the ED immediately if symptoms get worse. Referrals: HINA FRANCO MD [Staff Physician] - as needed Time of Disposition: 21:45 Print Language: BANGLADESHI
--- NOTE | 2021-02-25 21:55 | Ultrasound Report ---
ULTRASOUND OBSTETRIC INDICATION: Vaginal bleeding, estimated gestational age of 10.2 weeks. TECHNIQUE: Transabdominal. COMPARISON: None available. FINDINGS: GESTATIONAL SAC: None seen. YOLK SAC: None seen. EMBRYO/FETUS: None seen. UTERUS: No significant abnormality. ADNEXA: No significant abnormality. FREE FLUID: None. ADDITIONAL FINDINGS: None. IMPRESSION: 1. No intrauterine is identified sonographically. Signer Name: Hill Tang MD Signed: 02/25/2021 9:50 PM Workstation Name: [id number]
== END 2021-02-25 22:33 | disposition home or self-care (01) ==
LOC: ED 17:00
DX: O03.9 Complete or unspecified spontaneous abortion without complication (principal); J45.909 Unspecified asthma, uncomplicated; Z87.891 Personal history of nicotine dependence
CPT/HCPCS: 36415; 76801; 80048; 81001; 84702; 85025; 87086; 99284

== ENCOUNTER 2021-05-21 10:39 | Emergency (ER) | payer MEDICAID ==
[2021-05-21] MEDS ORDERED: ONDANSETRON 4 MG ODT TAB PO ONE (12:38)
--- NOTE | 2021-05-21 12:41 | Emergency Department Report ---
ED Abdominal Pain HPI - General Chief Complaint: Abdominal Pain Stated Complaint: ABD PAIN/NAUSEA/DIARRHEA Time Seen by Provider: 05/21/21 12:36 Source: patient Mode of arrival: Ambulatory Limitations: No Limitations - History of Present Illness Initial Comments: Patient presents with a 6-hour history of abdominal pain associate with nausea and vomiting and diarrhea. She has had no fevers or chills. There is no cough or congestion. Her 6-month-old son is sick with similar symptoms and has been sick for several days. She believes that she caught this illness from him. She had him seen at [facility] and he was diagnosed with a gastroenteritis, a stomach virus is what she was told. Patient denies travel out of the country. She has not been on antibiotics lately. Patient does not recall eating anything that tasted bad or unusual. She ate a [employer] last night and that tasted normal for her. Pain is aching and in the epigastric area. It does not radiate or migrate. It is constant. - Related Data Previous Rx's Medication Instructions Recorded Last Taken Type Hyoscyamine Subl [Levsin Sl 0.125 0.125 mg SL Q6HR PRN #20 tab 05/21/21 Unknown Rx TAB] Ondansetron [Zofran ODT TAB] 8 mg PO Q8HR PRN #20 tab.rapdis 05/21/21 Unknown Rx Allergies Allergy/AdvReac Type Severity Reaction Status Date / Time No Known Allergies Allergy Verified 05/21/21 11:40 ED Review of Systems ROS: Stated complaint: ABD PAIN/NAUSEA/DIARRHEA Other details as noted in HPI Comment: All other systems reviewed and negative Constitutional: denies: fever Eyes: denies: vision change ENT: denies: throat pain Respiratory: denies: cough Cardiovascular: denies: chest pain Endocrine: denies: unexplained weight loss Gastrointestinal: as per HPI Genitourinary: denies: dysuria Musculoskeletal: denies: back pain Skin: denies: rash Neurological: denies: headache Hematological/Lymphatic: denies: easy bruising ED Past Medical Hx - Past Medical History Previous Medical History?: Yes Hx Hypertension: No Hx Heart Attack/AMI: No Hx Congestive Heart Failure: No Hx Diabetes: No Hx Deep Vein Thrombosis: No Hx Liver Disease: No Hx Renal Disease: No Hx Sickle Cell Disease: No Hx Seizures: No Hx Asthma: Yes (last attack 2019) Hx COPD: No Hx HIV: No - Surgical History Hx Pacemaker: No Hx Internal Defibrillator: No - Family History Family history: asthma - Social History Smoking Status: Former Smoker - Medications Home Medications: Home Medications Medication Instructions Recorded Confirmed Last Taken Type Hyoscyamine Subl [Levsin Sl 0.125 0.125 mg SL Q6HR PRN #20 tab 05/21/21 Unknown Rx TAB] Ondansetron [Zofran ODT TAB] 8 mg PO Q8HR PRN #20 tab.rapdis 05/21/21 Unknown Rx ED Physical Exam - General Limitations: No Limitations, Other (Pulse ox noted and normal) General appearance: alert, in no apparent distress - Head Head exam: Present: atraumatic, normocephalic - Eye Eye exam: Present: normal appearance, EOMI. Absent: scleral icterus - ENT ENT exam: Present: mucous membranes moist, normal external ear exam - Neck Neck exam: Present: normal inspection. Absent: meningismus - Respiratory Respiratory exam: Present: normal lung sounds bilaterally. Absent: respiratory distress - Cardiovascular Cardiovascular Exam: Present: regular rate. Absent: normal rhythm - GI/Abdominal GI/Abdominal exam: Present: soft, tenderness (Epigastric). Absent: guarding, rebound - Extremities Exam Extremities exam: Present: normal capillary refill - Back Exam Back exam: Absent: CVA tenderness (R), CVA tenderness (L) - Neurological Exam Neurological exam: Present: alert, oriented X3, CN II-XII intact, normal gait. Absent: motor sensory deficit - Psychiatric Psychiatric exam: Present: normal affect, normal mood - Skin Skin exam: Present: warm, dry ED Course Vital Signs 05/21/21 11:39 Temperature 98.7 F Pulse Rate 110 H Respiratory 14 Rate Blood Pressure 123/80 O2 Sat by Pulse 97 Oximetry - Reevaluation(s) Reevaluation #1: 05/21/21 12:39 Labs were ordered. Old records noted. Reevaluation #2: 05/21/21 13:51 Labs are pending. ED Medical Decision Making - Lab Data Result diagrams: 05/21/21 13:04 - Medical Decision Making Patient presented with GI upset and a known sick contact. She clinically does not have peritonitis. There was no tenderness in the right upper quadrant suggestive of biliary colic. She does not have intractable vomiting that would suggest pancreatitis. She certainly has no distention or tympany to suggest bowel obstruction. Patient denies urinary symptoms. It is unlikely that a urinary tract infection or pyelonephritis would cause of these symptoms. Patient was treated symptomatically and referred for outpatient evaluation and follow-up. Critical Care Time: No Critical care attestation.: If time is entered above; I have spent that time in minutes in the direct care of this critically ill patient, excluding procedure time. ED Disposition Clinical Impression: Abdominal pain, epigastric, Nausea vomiting and diarrhea Disposition: 01 HOME / SELF CARE / HOMELESS Is pt being admited?: No Condition: Stable Instructions: Abdominal Pain, Adult, [id number], Nausea and Vomiting, Adult, Abdominal Pain (ED) Additional Instructions: Have a bland diet. Drink plenty of water. Return for problems. Follow-up with your regular doctor for recheck and further evaluation. Prescriptions: Hyoscyamine Subl [Levsin Sl 0.125 TAB] 0.125 mg SL Q6HR PRN #20 tab PRN Reason: abd pain Ondansetron [Zofran ODT TAB] 8 mg PO Q8HR PRN #20 tab.rapdis PRN Reason: Nausea Referrals: ISHAN PALMER MD [Staff Physician] - 3-5 Days PRIMARY CARE, [Primary Care Provider] - 3-5 Days
[2021-05-21 13:19] LABS: Hematocrit 40.1 % (30.3-42.9); Hemoglobin 13.6 gm/dl (10.1-14.3); Mean Corpuscular HGB Conc 34 % (30-34); Mean Corpuscular Volume 81 fl (79-97); Platelet Count 315 K/mm3 (140-440); Red Blood Count 4.94 M/mm3 (3.65-5.03); Red Cell Distribution Width 13.9 % (13.2-15.2)
[2021-05-21 14:30] LABS: Alanine Aminotransferase 16 units/L (7-56); Albumin 4.4 g/dL (3.9-5); Blood Urea Nitrogen 12 mg/dL (7-17); Calcium 9.2 mg/dL (8.4-10.2); Hemolysis Index 17
[2021-05-21 14:34] LABS: BUN/Creatinine Ratio 20
[2021-05-21 15:40] VITALS: BP 124/79
== END 2021-05-21 15:40 | disposition home or self-care (01) ==
LOC: ED 10:39
DX: R10.13 Epigastric pain (principal); R11.2 Nausea with vomiting, unspecified; R19.7 Diarrhea, unspecified; J45.909 Unspecified asthma, uncomplicated; Z87.891 Personal history of nicotine dependence; Z79.899 Other long term (current) drug therapy
CPT/HCPCS: 36415; 80053; 83690; 84703; 85027; 99283; J3490; Q0162

== ENCOUNTER 2021-10-07 16:34 | Emergency (ER) | payer MEDICAID ==
[2021-10-07 16:43] VITALS: BP 132/86
[2021-10-07 18:19] LABS: Basophils % (Auto) 0.6 % (0.0-1.8); Eosinophils # (Auto) 0.1 K/mm3 (0.0-0.4); Eosinophils % (Auto) 0.8 % (0.0-4.3); Hematocrit 34.9 % (30.3-42.9); Hemoglobin 11.5 gm/dl (10.1-14.3); Lymphocytes # (Auto) 1.5 K/mm3 (1.2-5.4); Lymphocytes % (Auto) 17.7 % (13.4-35.0); Mean Corpuscular HGB Conc 33 % (30-34); Mean Corpuscular Volume 82 fl (79-97); Monocytes # (Auto) 0.4 K/mm3 (0.0-0.8); Platelet Count 241 K/mm3 (140-440); Red Blood Count 4.28 M/mm3 (3.65-5.03); Red Cell Distribution Width 15.3 % (13.2-15.2)
[2021-10-07 18:36] LABS: Alanine Aminotransferase 10 units/L (7-56); Blood Urea Nitrogen 5 mg/dL (7-17); Calcium 9.3 mg/dL (8.4-10.2); Hemolysis Index 2
[2021-10-07 18:40] LABS: BUN/Creatinine Ratio 13
[2021-10-07 19:10] LABS: Albumin 3.6 g/dL (3.9-5)
== END 2021-10-07 23:55 | disposition left against medical advice (07) ==
LOC: ED 16:34
DX: O26.892 Other specified pregnancy related conditions, second trimester (principal); R51.9 Headache, unspecified; Z53.21 Procedure and treatment not carried out due to patient leaving prior to being seen by health care provider; Z3A.15 15 weeks gestation of pregnancy
CPT/HCPCS: 36415; 80053; 83690; 85025

== ENCOUNTER 2021-10-09 20:35 | Emergency (ER) | payer MEDICAID ==
[2021-10-09] MEDS ORDERED: LACTATED RINGERS 1,000 ML IV ONE (21:47)
[2021-10-09] MEDS ORDERED: FAMOTIDINE 20 MG/2 ML INJ IV ONE (21:48)
[2021-10-09 21:56] LABS: Basophils # (Auto) 0.1 K/mm3 (0.0-0.1); Basophils % (Auto) 0.8 % (0.0-1.8); Eosinophils # (Auto) 0.1 K/mm3 (0.0-0.4); Eosinophils % (Auto) 0.7 % (0.0-4.3); Hematocrit 33.7 % (30.3-42.9); Hemoglobin 11.4 gm/dl (10.1-14.3); Lymphocytes # (Auto) 1.7 K/mm3 (1.2-5.4); Mean Corpuscular HGB Conc 34 % (30-34); Mean Corpuscular Volume 81 fl (79-97); Monocytes # (Auto) 0.5 K/mm3 (0.0-0.8); Monocytes % (Auto) 5.4 % (0.0-7.3); Platelet Count 249 K/mm3 (140-440); Red Blood Count 4.14 M/mm3 (3.65-5.03); Red Cell Distribution Width 15.5 % (13.2-15.2)
[2021-10-09 22:05] LABS: Alanine Aminotransferase 13 units/L (7-56); Albumin 3.4 g/dL (3.9-5); Blood Urea Nitrogen 7 mg/dL (7-17); Hemolysis Index 0
[2021-10-09 22:09] LABS: BUN/Creatinine Ratio 12
--- NOTE | 2021-10-09 22:17 | Emergency Department Report ---
HPI - General Chief Complaint: Dizziness PUI?: No Time Seen by Provider: 10/09/21 21:23 - HPI HPI: 20-year-old obese female, G3, P1, currently 15 weeks per LMP dates, presents for evaluation of 2 weeks of abdominal cramping, 2 days of dysuria, intermittent complains of "a feeling like I am going to, to pass out" (although patient repeatedly states she did not pass out to this provider when questioned further), and nausea and vomiting. Pt states she sees a wing commander named Payal @ [facility] in [place]. She states she last saw her wing commander 2 weeks ago at which time she was diagnosed with a urinary tract infection and placed on both metronidazole and Keflex. She states that her antibiotics have been written for 10 days and she is currently on day 6 of her medications. No clear fluid leaking from her vagina, no no abnormal vaginal discharge. She states that her abdominal cramping is intermittent and does not have a specify timing and is not consistent with her prior history of contractions. 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 She reports she believes she is drinking enough fluid but she is unsure. She denies any chest pain shortness of breath difficulty breathing or palpitations. She denies any headaches, vision changes, difficulty talking walking or word finding. Patient denies any active UTI symptoms at this time. Pain currently 0/10. ED Past Medical Hx - Past Medical History Previous Medical History?: Yes Hx Hypertension: No Hx Heart Attack/AMI: No Hx Congestive Heart Failure: No Hx Diabetes: No Hx Deep Vein Thrombosis: No Hx Liver Disease: No Hx Renal Disease: No Hx Sickle Cell Disease: No Hx Seizures: No Hx Asthma: Yes (last attack 2019) Hx COPD: No Hx HIV: No - Surgical History Past Surgical History?: No Hx Pacemaker: No Hx Internal Defibrillator: No - Social History Smoking Status: Never Smoker Substance Use Type: None - Medications Home Medications: Home Medications Medication Instructions Recorded Confirmed Last Taken Type Hyoscyamine Subl [Levsin Sl 0.125 0.125 mg SL Q6HR PRN #20 tab 05/21/21 Unknown Rx TAB] Ondansetron [Zofran ODT TAB] 8 mg PO Q8HR PRN #20 tab.rapdis 05/21/21 Unknown Rx ED Review of Systems ROS: Stated complaint: DIZZINESS/ABD PAIN Other details as noted in HPI Comment: All other systems reviewed and negative Constitutional: no symptoms reported. denies: see HPI, chills Eyes: denies: as per HPI, eye pain, eye discharge, vision change ENT: denies: as per HPI, ear pain, throat pain, dental pain, hearing loss, epistaxis Respiratory: denies: no symptoms reported, see HPI, cough, orthopnea, shortness of breath, SOB with exertion, SOB at rest, stridor Cardiovascular: denies: as per HPI, chest pain, palpitations, dyspnea on exertion, orthopnea, edema, syncope, paroxysmal nocturnal dyspnea, other Endocrine: denies: no symptoms reported, excessive sweating, flushing, intolerance to cold, intolerance to heat, increased hunger, increased thirst, increased urine, unexplained weight gain, unexplained weight loss Gastrointestinal: abdominal pain. denies: nausea, vomiting, diarrhea, constipation, hematemesis, melena, hematochezia Genitourinary: urgency, dysuria. denies: frequency, hematuria, discharge, abnormal menses, dyspareunia, other Musculoskeletal: denies: as per HPI, back pain, joint swelling, arthralgia Skin: denies: as per HPI, rash, lesions Neurological: other (dizziness). denies: as per HPI, headache, weakness, numbness, paresthesias, confusion, abnormal gait, vertigo Psychiatric: denies: anxiety, depression, auditory hallucinations, visual hallucinations, homicidal thoughts, suicidal thoughts Hematological/Lymphatic: denies: easy bleeding, easy bruising, swollen glands Physical Exam - Physical Exam Vital Signs: Vital Signs 10/09/21 10/09/21 20:36 21:30 Temperature 97.8 F 98.2 F Pulse Rate 94 H 105 H Respiratory 18 19 Rate Blood Pressure 131/86 Blood Pressure 109/72 [Left] O2 Sat by Pulse 97 98 Oximetry General: Gen: pt is well appearing, no acute distress smiling, laughing, comfortable appearing, no acute distress HEENT: Normocephalic atraumatic pupils equally round and reactive to light extraocular muscles intact sclera anicteric Neck: Full range of motion, no midline spinal tenderness palpation, no JVD, no carotid bruits, no nuchal rigidity CVS: S1-S2 regular rate and rhythm with no gallops rubs or murmurs, chest wall nontender Pulmonary: Clear to auscultation bilaterally, no wheezes rales or rhonchi Abdomen: Soft gravid nontender no guarding or rebound tenderness, no palpable deformities or step-offs, normal active bowel sounds, no hepatosplenomegaly, no pulsatile masses : Deferred Extremities: No cyanosis no clubbing no edema, intact distal peripheral pulses, Integumentary: Skin normal, no petechia no purpura no abscess no lacerations no evidence of trauma no evidence of infection Neuro: Patient is awake alert and oriented to person place time situation, mentating well, cranial nerves II through XII intact, no focal neurodeficits, sensation grossly tact Psych: Calm cooperative, mood affect normal ED Course Vital Signs 10/09/21 10/09/21 20:36 21:30 Temperature 97.8 F 98.2 F Pulse Rate 94 H 105 H Respiratory 18 19 Rate Blood Pressure 131/86 Blood Pressure 109/72 [Left] O2 Sat by Pulse 97 98 Oximetry - Reevaluation(s) Reevaluation #1: 10/09/21 22:18 Patient reassessed. She is comfortable and well-appearing, watching video on her personal cellular telephone with her at her bedside, no acute distress, Reevaluation #2: 10/09/21 23:52 Patient is comfortable and well-appearing, observed eating [employer] meal in her examination room, she is tolerating's p.o. without difficulty. And at this time the patient had not been given any antiemetics, intravenous fluids, or famotidine. Lab results discussed at length with the patient and she verbalized understanding ED Medical Decision Making - Lab Data Result diagrams: 10/09/21 21:34 10/09/21 21:34 - EKG Data -: EKG Interpreted by Me EKG shows normal: sinus rhythm Rate: normal - EKG Data When compared to previous EKG there are: no significant change, previous EKG unavailable Interpretation: no acute changes, normal EKG 10/09/21 23:53 EKG interpreted by me: Ventricular rate 98 bpm. P waves are present and proceed every QRS complex. Intervals normal. No ST segment depressions or elevations. No T wave flattening or inversions. No ectopy. No arrhythmia. Normal axis. Sinus rhyt hm. - Radiology Data Radiology results: report reviewed - Medical Decision Making 20-year-old female currently 15 weeks per LMP dates, G3, P1, presents for evaluation of multiple complaints Including including dizziness, abdominal cramping, nausea, inability to tolerate liquids or solids x2 weeks, and dysuria that has resolved x2 days. Vital signs stable. Patient reassessed multiple times and she is extremely well-appearing. She was observed eating [employer] here without any medications given to her and she was tolerating this without difficulty reproduction or worsening of her symptoms. Serum labs reviewed. Patient underwent formal transabdominal ultrasound to confirm live IUP. She has documented live IUP. Results from serum labs as well as ultrasound were discussed at length with the patient. She verbalized understanding. Overall the patient is extremely well-appearing. She has no focal neurological deficits. Her cardiopulmonary examination as well as her electrocardiogram are grossly unremarkable. Patient per my clinical assessment is deemed stable for discharge to home. She was advised to follow-up with her wing commander as well as her primary care doctor within 1-2 business days for reassessment. No further emergent work-up warranted. Patient stable for discharge to home. Prior to discharge she was given strict verbal and written return precautions. Patient verbalized understanding and agreement plan of care Critical care attestation.: If time is entered above; I have spent that time in minutes in the direct care of this critically ill patient, excluding procedure time. ED Disposition Clinical Impression: Abdominal cramping, Dizziness Disposition: HOME / SELF CARE / HOMELESS Is pt being admited?: No Does the pt Need Aspirin: No Condition: Stable
--- NOTE | 2021-10-09 23:27 | Ultrasound Report ---
EARLY OBSTETRICAL ULTRASOUND INDICATION: 15wks ; confirm live IUP COMPARISON: None recent pertinent available TECHNIQUE: Transabdominal FINDINGS: Single intrauterine is seen with estimated gestational age of 14 weeks 1 day by c rown-rump length. This is only some mildly less than clinical dating of 15 weeks 1 day. Cardiac activ ity was documented at 166 bpm. Placenta is fundal and free of the internal cervical os. Satisfactory and fluid is seen qualitatively. No obvious anomalies are seen but this is not a full anatomical stud y. Ovaries are not visualized but no adnexal masses are seen. No free fluid is noted. IMPRESSION: 14 week 1 day normal-appearing intrauterine on limited exam Signer Name: Jah Rosario MD Signed: 10/09/2021 11:23 PM Workstation Name: [id number]
[2021-10-10 00:26] LABS: Bilirubin,Urine NEG (Negative); Blood,Urine LG (Negative); Color,Urine Yellow (Yellow); Protein,Urine <15 mg/dL mg/dL (Negative); Urobilinogen,Urine < 2.0 mg/dL (<2.0)
[2021-10-10 00:28] LABS: Mucus,Urine FEW /HPF
[2021-10-10 02:14] VITALS: BP 110/62
--- NOTE | 2021-10-10 15:19 | Electrocardiograph Report ---
[facility] Test Date: 2021-10-09 Test Time: 23:46:28 Pat Name: AMNA BIANCHI Department: Room: Gender: F [employer]: CC : 2000 Requested By: MIKO ELIZONDO Order Number: [id number] Reading MD: Fani Nava Measurements Intervals [place] Rate: 98 P: 61 MT: 150 QRS: 76 QRSD: 87 T: 43 QT: 338 QTc: 432 Interpretive Statements Sinus rhythm Compared to ECG 09/29/2020 17:41:01 Sinus tachycardia no longer present Electronically Signed On 10-10-2021 15:19:32 EDT by Fani Nava
== END 2021-10-10 01:34 | disposition home or self-care (01) ==
LOC: ED 20:35
DX: O26.892 Other specified pregnancy related conditions, second trimester (principal); R10.9 Unspecified abdominal pain; R42 Dizziness and giddiness; Z3A.15 15 weeks gestation of pregnancy
CPT/HCPCS: 36415; 76805; 80053; 81001; 83690; 85025; 93005; 96360; 99284; J7120; 76802

== ENCOUNTER 2021-10-29 11:47 | Emergency (ER) | payer MEDICAID ==
[2021-10-29] MEDS ORDERED: SODIUM CHLORIDE 0.9% 1000 ML 1,000 ML IV ONE (12:42)
[2021-10-29] MEDS ORDERED: diphenhydrAMINE 50 MG/ML VIAL IV ONE (12:42)
[2021-10-29] MEDS ORDERED: ONDANSETRON 4 MG/2 ML INJ IV ONE ×2 (12:42→14:47)
[2021-10-29] MEDS ORDERED: BENZONATATE 100 MG CAP PO ONE (12:42)
--- NOTE | 2021-10-29 12:44 | Emergency Department Report ---
ED General Adult HPI - General Chief complaint: Upper Respiratory Infection Stated complaint: POSITIVE COVID, CHEST PAIN,COUGH,NAUSEA Time Seen by Provider: 10/29/21 12:42 Source: patient Mode of arrival: Ambulatory Limitations: No Limitations - History of Present Illness Initial comments: The patient presents to the emergency department via private vehicle for COVID symptoms. Patient states she is 18 weeks and was recently diagnosed with COVID. She complains of nausea, vomiting, diarrhea as well as a significant cough. She denies any chest pain or abdominal pain. Denies any vaginal bleeding or discharge. -: Gradual Severity scale (0 -10): 0 Consistency: constant Improves with: none Worsens with: none Associated Symptoms: denies other symptoms Treatments Prior to Arrival: none - Related Data Previous Rx's Medication Instructions Recorded Last Taken Type Hyoscyamine Subl [Levsin Sl 0.125 0.125 mg SL Q6HR PRN #20 tab 05/21/21 Unknown Rx TAB] Ondansetron [Zofran ODT TAB] 8 mg PO Q8HR PRN #20 tab.rapdis 05/21/21 Unknown Rx Ondansetron [Zofran Odt] 4 mg PO Q4HR PRN #20 tab.rapdis 10/29/21 Unknown Rx Allergies Allergy/AdvReac Type Severity Reaction Status Date / Time No Known Allergies Allergy Verified 10/29/21 12:14 ED Review of Systems ROS: Stated complaint: POSITIVE COVID, CHEST PAIN,COUGH,NAUSEA Other details as noted in HPI Constitutional: denies: chills, fever Eyes: denies: eye pain, eye discharge, vision change ENT: denies: ear pain, throat pain Respiratory: cough. denies: shortness of breath, wheezing Cardiovascular: denies: chest pain, palpitations Endocrine: no symptoms reported Gastrointestinal: nausea, vomiting. denies: abdominal pain, diarrhea Genitourinary: denies: urgency, dysuria, discharge Musculoskeletal: denies: back pain, joint swelling, arthralgia Skin: denies: rash, lesions Neurological: denies: headache, weakness, paresthesias Psychiatric: denies: anxiety, depression Hematological/Lymphatic: denies: easy bleeding, easy bruising ED Past Medical Hx - Past Medical History Hx Hypertension: No Hx Heart Attack/AMI: No Hx Congestive Heart Failure: No Hx Diabetes: No Hx Deep Vein Thrombosis: No Hx Liver Disease: No Hx Renal Disease: No Hx Sickle Cell Disease: No Hx Seizures: No Hx Asthma: Yes (last attack 2019) Hx COPD: No Hx HIV: No - Surgical History Hx Pacemaker: No Hx Internal Defibrillator: No - Social History Smoking Status: Never Smoker Substance Use Type: None - Medications Home Medications: Home Medications Medication Instructions Recorded Confirmed Last Taken Type Hyoscyamine Subl [Levsin Sl 0.125 0.125 mg SL Q6HR PRN #20 tab 05/21/21 Unknown Rx TAB] Ondansetron [Zofran ODT TAB] 8 mg PO Q8HR PRN #20 tab.rapdis 05/21/21 Unknown Rx Ondansetron [Zofran Odt] 4 mg PO Q4HR PRN #20 tab.rapdis 10/29/21 Unknown Rx ED Physical Exam - General Limitations: No Limitations General appearance: alert, in no apparent distress - Head Head exam: Present: atraumatic, normocephalic - Eye Eye exam: Present: normal appearance - ENT ENT exam: Present: mucous membranes moist - Neck Neck exam: Present: normal inspection - Respiratory Respiratory exam: Present: normal lung sounds bilaterally. Absent: respiratory distress - Cardiovascular Cardiovascular Exam: Present: normal rhythm, tachycardia. Absent: systolic murmur, diastolic murmur, rubs, gallop - GI/Abdominal GI/Abdominal exam: Present: soft, normal bowel sounds. Absent: tenderness - Extremities Exam Extremities exam: Present: normal inspection - Back Exam Back exam: Present: normal inspection - Neurological Exam Neurological exam: Present: alert, oriented X3 - Psychiatric Psychiatric exam: Present: normal affect, normal mood - Skin Skin exam: Present: warm, dry, intact, normal color. Absent: rash ED Course Vital Signs 10/29/21 10/29/21 12:12 14:47 Temperature 98.5 F Pulse Rate 108 H Respiratory 18 20 Rate Blood Pressure 136/67 [Left] O2 Sat by Pulse 99 98 Oximetry ED Medical Decision Making - Medical Decision Making Patient received IVF's FHT 152 bpm Critical care attestation.: If time is entered above; I have spent that time in minutes in the direct care of this critically ill patient, excluding procedure time. ED Disposition Clinical Impression: COVID, Nausea & vomiting Disposition: 01 HOME / SELF CARE / HOMELESS Is pt being admited?: No Does the pt Need Aspirin: No Condition: Stable Instructions: COVID-19, Vomiting, Adult Additional Instructions: return if worse
[2021-10-29 16:44] VITALS: BP 133/59
== END 2021-10-29 16:02 | disposition home or self-care (01) ==
LOC: ED 11:47
DX: O21.8 Other vomiting complicating pregnancy (principal); O98.512 Other viral diseases complicating pregnancy, second trimester; J45.909 Unspecified asthma, uncomplicated; Z3A.18 18 weeks gestation of pregnancy
CPT/HCPCS: 96361; 96374; 96375; 96376; 99283; J1200; J2405; J7030

== ENCOUNTER 2021-11-18 18:21 | Outpatient (CLI) | payer MEDICAID ==
[2021-11-18 19:46] VITALS: BP 124/68
--- NOTE | 2021-11-18 21:16 | Ultrasound Report ---
ULTRASOUND OBSTETRIC INDICATION / CLINICAL INFORMATION: pain and vaginal bleeding. - Clinical Gestational Age (GA) in weeks, days: 20 weeks 6 days TECHNIQUE: Transabdominal. COMPARISON: 10/09/2021 density ultrasound FINDINGS: Single intrauterine . Biparietal Diameter = 5.2 cm = 21, 6 weeks, days Head Circumference = 20 cm = 22, 1 weeks, days Abdominal Circumference = 17.24 cm = 22, 3 weeks, days Femur Length = 4.03 cm = 23, 0 weeks, days Average Ultrasound Age (AUA) = 22, 3 weeks, days Heart Rate: 154 beats per minute. Estimated Weight in grams (if calculated): 519 Estimated Weight Growth Percentile (if calculated): Position: cephalic. Cervix: closed. Length in cm (if measured): 4.1 Placenta: anterior and free of the os. Amniotic Fluid Volume: normal Amniotic Fluid Index (ROBIN) in cm (if calculated): 13.6. Maternal Adnexa: No significant abnormality. IMPRESSION: 1. Single, living intrauterine with estimated sonographic age of 22 weeks, 3 days. 2. No significant sonographic abnormality. Signer Name: Robles Catalan MD Signed: 11/18/2021 9:12 PM Workstation Name: [id number]
[2021-11-18] MEDS ORDERED: ACETAMINOPHEN 500 MG TAB ONE (21:22)
[2021-11-18] MEDS ORDERED: ACETAMINOPHEN 500 MG TAB PO ONE (21:24)
[2021-11-18 23:15] LABS: Color,Urine Straw (Yellow)
[2021-11-18 23:16] LABS: Mucus,Urine 1+ /HPF
== END 2021-11-18 22:00 | disposition home or self-care (01) ==
LOC: TRG 18:21 → APU 18:24 → TRG 22:00
PROVIDERS: ATTEND Obstetrics & Gynecology
DX: O26.893 Other specified pregnancy related conditions, third trimester (principal); R10.2 Pelvic and perineal pain; Z3A.20 20 weeks gestation of pregnancy
CPT/HCPCS: 76816; 81001